=== PATIENT | female | born 1990 | race Asian ===

== ENCOUNTER 2017-04-27 13:56 | Emergency (ER) | payer OTHER ==
[2017-04-27 16:55] LABS: Hematocrit 40 % (35-47); Hemoglobin 13.3 g/dl (12.0-16.0); Mean Corpuscular HGB Conc 33 g/dl (31-36); Mean Corpuscular Hemoglobin 28 pg (27-31); Mean Corpuscular Volume 85 fL (80-97); Mean Platelet Volume 8 um3 (7.4-10.4); Red Cell Distribution Width 15 % (10.5-15); White Blood Count 6.2 10^3/ul (3.5-10.8)
[2017-04-27 17:12] LABS: Albumin 4.7 g/dL (3.2-5.2); BUN/Creatinine Ratio 12.9 (8-20); Calcium 9.9 mg/dL (8.6-10.3); EGFR African American 129.1 (>60); EGFR Non-African American 100.4 (>60); Globulin 3.4 g/dL (2-4); Total Bilirubin 0.4 mg/dL (0.2-1.0); Total Protein 8.1 g/dL (6.4-8.9)
[2017-04-27] MEDS ORDERED: Iohexol 350* (CONTRAST) 500 ML MDV IV ONE (17:40)
--- NOTE | 2017-04-27 18:46 | RAD ---
INDICATION: Chest pain. Short of breath. Evaluate for pulmonary embolus. COMPARISON: None TECHNIQUE: Axial source images were obtained from the thoracic inlet to the hemidiaphragms following administration of [address] angiographic technique was utilized. Coronal and sagittal reconstructed images were acquired. CHEST FINDINGS: Neck/thyroid: The visualized neck to include the thyroid appear normal. Chest wall: There are no acute abnormalities of the bony thorax or chest wall. There is no supraclavicular, infraclavicular, or axillary lymphadenopathy. Lungs : There are no pulmonary parenchymal masses or infiltrates. The pulmonary interstitium appears normal. There are no endobronchial lesions. Cardiomediastinal structures: There is no CT evidence of acute pulmonary embolic disease. The heart is normal in size. There is no pericardial effusion. There is no evidence of aortic aneurysm or dissection. There is no mediastinal or hilar adenopathy. The esophagus appears normal. Pleura : There are no pleural-based masses or effusions. Other: None. IMPRESSION: NO CT EVIDENCE OF ACUTE PULMONARY EMBOLIC DISEASE. LUNGS CLEAR
[2017-04-27 19:37] VITALS: BP 105/72
--- NOTE | 2017-04-27 21:32 | ED ---
Rony Lee Julia, scribed for Luis Norton MD on 04/27/17 at 1628 . Complex/Multi-Sys Presentation - HPI Summary HPI Summary: Patient is a 27 year old female presenting to [facility] with a chief complaint of gradually worsening SOB. Patient was started on an oral BCP for "constant menstruation" 2 weeks ago. She was referred to the ED by [facility] for a positive D-Dimer. She reports "I have to pace myself to breath, using my mouth. " Symptoms are worsened by lying or sitting for prolonged periods of time. - History Of Current Complaint Chief Complaint: EDGeneral Time Seen by Provider: 04/27/17 16:18 Hx Obtained From: Patient Onset/Duration: Gradual Onset, Lasting Weeks Aggravating Factor(s): laying, sitting Associated Signs And Symptoms: Positive: Other - SOB, constant menstration - Allergies/Home Medications Allergies/Adverse Reactions: Allergies Allergy/AdvReac Type Severity Reaction Status Date / Time Erythromycin AdvReac GI Upset Verified 04/27/17 17:00 PMH/Surg Hx/FS Hx/Imm Hx History: Reports: Other Problems/Disorders - constant menstruation Sensory History: Denies: Hx Deafness Opthamlomology History: Denies: Hx Legally Blind Infectious Disease History: No Infectious Disease History: Denies: Traveled Outside the [place] in Last 30 Days - Family History Known Family History: Positive: Cardiac Disease - CAD paternal - Social History Occupation: Student Alcohol Use: Occasionally Hx Substance Use: No Substance Use Type: Reports: None Hx Tobacco Use: No Smoking Status (MU): Never Smoked Tobacco Review of Systems Negative: Fever Positive: Shortness Of Breath All Other Systems Reviewed And Are Negative: Yes Physical Exam - Summary Physical Exam Summary: Appearance: The patient is well-nourished in no acute distress and in no acute pain. Skin: The skin is warm and dry and skin color reflects adequate perfusion. HEENT: The head is normocephalic and atraumatic. The pupils are equal and reactive. The conjunctivae are clear and without drainage. Nares are patent and without drainage. Mouth reveals moist mucous membranes and the throat is without erythema and exudate. The external ears are intact. The ear canals are patent and without drainage. The tympanic membranes are intact. Neck: the neck is supple with full range of motion and non-tender. There are no carotid bruits. There is no neck vein distension. Respiratory: Chest is non-tender. Lungs are clear to auscultation and breath sounds are symmetrical and equal. Cardiovascular: Heart is regular rate and rhythm. There is no murmur or rub auscultated. There is no peripheral edema and pulses are symmetrical and equal. Abdomen: The abdomen is soft and non-tender. There are normal bowel sounds heard in all four quadrants and there is no organomegaly palpated. Musculoskeletal: There is no back tenderness noted. Extremities are non-tender with full range of motion. There is good capillary refill. There is no peripheral edema or calf tenderness elicited. Neurological: Patient is alert and oriented to person, place and time. The patient has symmetrical motor strength in all four extremities. Cranial nerves are grossly intact. Deep tendon reflexes are symmetrical and equal in all four extremities. Psychiatric: The patient has an appropriate affect and does not exhibit any anxiety or depression. Triage Information Reviewed: Yes Vital Signs On Initial Exam: Initial Vitals Temp Pulse Resp BP Pulse Ox 98.2 F 66 20 108/69 98 04/27/17 14:26 04/27/17 14:26 04/27/17 14:26 04/27/17 14:26 04/27/17 14:26 Vital Signs Reviewed: Yes Diagnostics - Vital Signs Vital Signs Temp Pulse Resp BP Pulse Ox 04/27/17 14:26 98.2 F 66 20 108/69 98 - Laboratory Lab Results: Lab Results 04/27/17 04/27/17 04/27/17 Range/Units 16:35 16:35 16:35 WBC 6.2 (3.5-10.8) 10^3/ul RBC 4.70 (4.0-5.4) 10^6/ul Hgb 13.3 (12.0-16.0) g/dl Hct 40 (35-47) % MCV 85 (80-97) fL MCH 28 (27-31) pg MCHC 33 (31-36) g/dl RDW 15 (10.5-15) % Plt Count 377 (150-450) 10^3/ul MPV 8 (7.4-10.4) um3 INR (Anticoag Therapy) 0.87 (0.77-1.02) APTT 31.1 (26.0-36.3) seconds Sodium 135 (133-145) mmol/L Potassium 4.0 (3.5-5.0) mmol/L Chloride 104 (101-111) mmol/L Carbon Dioxide 23 (22-32) mmol/L Anion Gap 8 (2-11) mmol/L BUN 9 (6-24) mg/dL Creatinine 0.70 (0.51-0.95) mg/dL Est GFR ( Amer) 129.1 (>60) Est GFR (Non-Af Amer) 100.4 (>60) BUN/Creatinine Ratio 12.9 (8-20) Glucose 83 (70-100) mg/dL Calcium 9.9 (8.6-10.3) mg/dL Total Bilirubin 0.40 (0.2-1.0) mg/dL AST 16 (13-39) U/L ALT 10 (7-52) U/L Alkaline Phosphatase 20 L (34-104) U/L Total Protein 8.1 (6.4-8.9) g/dL Albumin 4.7 (3.2-5.2) g/dL Globulin 3.4 (2-4) g/dL Albumin/Globulin Ratio 1.4 (1-3) Result Diagrams: 04/27/17 16:35 04/27/17 16:35 Lab Statement: Any lab studies that have been ordered have been reviewed, and results considered in the medical decision making process. - CT CTA Chest CT Interpretation Completed By: Radiologist - NO CT EVIDENCE OF ACUTE PULMONARY EMBOLIC DISEASE. LUNGS CLEAR. ED Physician has reviewed this report Complex Multi-Symp Course/Dx Course Of Treatment: Ms. Miles was sent over from [facility], She was started recentlyon OC's due to DUB. Recently she has noticed that she is breathing harder when she exerts herself and [facility] sent a d-dimer that was weakly positive. She was sent over for a CTA. She was hesitant to have IV contrast as an uncle of hers after being given something IV for an imaging study. I placed 0.25 cc's of IV contrast intradermally using a 30 guage needle. 30 minutes later she had no local reaction and we went ahead with the CTA. The CTA was negative for PE. I'm not sure what the source of her dyspnea is and recommended she F/U at [facility]. - Diagnoses Provider Diagnoses: Dyspnea Discharge - Discharge Plan Condition: Stable Disposition: HOME Patient Education Materials: Dyspnea (ED) Referrals: Pricilla Love NP [Primary Care Provider] - [facility] - Albert ELIZABETH [Medical Doctor] - Additional Instructions: RETURN TO THE EMERGENCY DEPARTMENT FOR CHANGING OR WORSENING SYMPTOMS. The documentation as recorded by the Rony de oliveira Julia accurately reflects the service I personally performed and the decisions made by me, Luis Norton MD.
== END 2017-04-27 19:35 | disposition home or self-care (01) ==
LOC: ED 13:56
DX: R06.00 Dyspnea, unspecified (principal); N92.6 Irregular menstruation, unspecified; Z88.1 Allergy status to other antibiotic agents
CPT/HCPCS: 36415; 71275; 80053; 85027; 85610; 85730; 99282; Q9967

== ENCOUNTER 2017-12-26 21:02 | Emergency (ER) | payer OTHER ==
[2017-12-26 21:41] VITALS: BP 102/66
[2017-12-26] MEDS ORDERED: Ketorolac INJ* 30 MG/ML 1 ML VIAL IM ONE (22:13)
--- NOTE | 2018-01-19 11:49 | UC ---
Headache HPI - HPI Summary HPI Summary: 27 year old patient who states she had onset of severe headache with nausea, light sensitivity and throbbing near eyes and on temples. She states pain was initially 6/10 but she took ibuprofen and pain is now 3/10. She Denies vomiting , diarrhea, neck stiffness or pain, LOC, chest pain, SOB, dizziness, history of HTN. PMH of migraine headaches. - History Of Current Complaint Chief Complaint: UCHeadache Stated Complaint: HEADACHE Hx Obtained From: Patient Hx Last Menstrual Period: [id number] ?: No Onset/Duration: Sudden Onset, Lasting Hours Onset Of Symptoms: Still Present Initially Headache Was: Moderate Currently Pain Is: Mild Pain Intensity: 3 Timing: Constant, Hours Character: Throbbing, Pressure, Migraine Location of Headache: Temporal Aggravating Factor(s): Bright Lights Allevating Factor(s): Rest, Medication - Risk Factors SAH Risk Factors: Negative Meningitis Risk Factors: Negative SDH Risk Factors: Negative Temporal Arteritis Risk Factors: Negative - Allergies/Home Medications Allergies/Adverse Reactions: Allergies Allergy/AdvReac Type Severity Reaction Status Date / Time erythromycin base Allergy GI Upset Verified 12/26/17 21:43 Home Medications: Home Medications Ascorbic Acid TAB* [Vitamin C TAB*] 500 mg PO DAILY 12/26/17 [History Confirmed 12/26/17] Ibuprofen TAB* [Advil TAB*] 200 mg PO Q6H PRN 12/26/17 [History Confirmed ] PMH/Surg Hx/FS Hx/Imm Hx Previously Healthy: Yes Neurological History: Migraine - Surgical History Surgical History: None - Family History Known Family History: Positive: Cardiac Disease - CAD paternal - Social History Alcohol Use: Occasionally Substance Use Type: None Smoking Status (MU): Never Smoked Tobacco Review of Systems Neurological: Headache All Other Systems Reviewed And Are Negative: Yes Physical Exam Triage Information Reviewed: Yes Appearance: Well-Appearing, No Pain Distress, Well-Nourished Vital Signs: Initial Vital Signs Temp 98.6 F 12/26/17 21:34 Pulse 66 12/26/17 21:34 Resp 16 12/26/17 21:34 BP 102/66 12/26/17 21:34 Pulse Ox 100 12/26/17 21:34 Vital Signs Reviewed: Yes Eye Exam: Normal ENT Exam: Normal ENT: Positive: Hearing grossly normal, Pharynx normal, TMs normal Dental Exam: Normal Neck exam: Normal Neck: Positive: Supple, Nontender, No Lymphadenopathy Respiratory Exam: Normal Respiratory: Positive: Chest non-tender, Lungs clear, Normal breath sounds, No respiratory distress Cardiovascular Exam: Normal Cardiovascular: Positive: RRR, No Murmur, Pulses Normal, Brisk Capillary Refill Abdominal Exam: Normal Abdomen Description: Positive: Nontender, No Organomegaly, Soft Bowel Sounds: Positive: Present Musculoskeletal: Positive: Strength Intact, ROM Intact, No Edema Neurological Exam: Normal, Other - CN II-XII grossly intact, strength preserved 5/5x4, sensory intact, gait is normal, no ataxia, cerebellar testing within normal. Neurological: Positive: Alert, Muscle Tone Normal Psychological Exam: Normal Psychological: Positive: Age Appropriate Behavior Skin Exam: Normal Headache Course/Dx - Course Course Of Treatment: Patient with migraine headache, who took ibuprofen just prior to visit to the . She states pain is starting to decrease and now it is 2-3/10. Initial dose of toradol IM was deferred due to patient's request. Instructed to continue with ibuprofen PRN and f/u with PCP for monitoring and control of headaches. - Differential Dx/Diagnosis Provider Diagnoses: Migraine headache Discharge - Sign-Out/Discharge Documenting (check all that apply): Patient Departure All imaging exams completed and their final reports reviewed: No Studies - Discharge Plan Condition: Stable Disposition: HOME Patient Education Materials: Ibuprofen (By mouth), Migraine Headache (ED) Referrals: Pricilla Love NP [Primary Care Provider] - - Billing Disposition and Condition Condition: STABLE Disposition: Home
== END 2017-12-26 22:40 | disposition home or self-care (01) ==
LOC: UCEAST 21:02
DX: G43.909 Migraine, unspecified, not intractable, without status migrainosus (principal); Z88.1 Allergy status to other antibiotic agents
CPT/HCPCS: 99211; G0463; J1885